=== PATIENT | female | born 1960 | race Caucasian/White ===

== ENCOUNTER → 2018-06-02 11:27 | Outpatient (CLI) | payer BC | END | disposition home or self-care (01) | LOC: D.RAD 08:15 | DX: N64.89 Other specified disorders of breast (principal) ==

== ENCOUNTER → 2020-04-09 12:02 | Outpatient (CLI) | payer BC | END | disposition home or self-care (01) | LOC: D.CT 12:02 | PROVIDERS: ATTEND Internal Medicine Gastroenterology | DX: R93.3 Abnormal findings on diagnostic imaging of other parts of digestive tract (principal); K31.9 Disease of stomach and duodenum, unspecified ==

== ENCOUNTER → 2021-01-08 10:48 | Outpatient (CLI) | payer BC | END | disposition home or self-care (01) | LOC: D.CT 10:48 | PROVIDERS: ATTEND Internal Medicine Gastroenterology | DX: R13.10 Dysphagia, unspecified (principal) ==